=== PATIENT | female | born 2000 | race Caucasian/White ===

== ENCOUNTER 2023-05-06 10:03 | Outpatient (CLI) | payer OTHER, SELFPAY | END 2023-05-06 10:04 | disposition home or self-care (01) | PROVIDERS: PCP Family Medicine; Visit Provider Family Medicine | DX: R53.83 Other fatigue (principal); Z11.3 Encounter for screening for infections with a predominantly sexual mode of transmission | CPT/HCPCS: 84443; 86703; 87491; 87591 ==